=== PATIENT | male | born 1970 | race Caucasian/White ===

== ENCOUNTER 2019-06-21 14:52 | Emergency (ER) | payer BC, SELFPAY ==
[2019-06-21 15:36] LABS: Absolute Lymphocytes (CBC) 2.3 K/uL (0.7-4.9); Basophils % 0.7 % (0-1.3); Hematocrit 43.1 % (39.6-49.0); Lymphocytes % 20.9 % (15.3-44.8); MPV 7.4 fL (7.6-11.3); RBC Red Blood Cell Count 4.86 M/uL (4.33-5.43)
[2019-06-21] MEDS ORDERED: NA CHLORIDE 0.9% 1,000 ML ONE (16:36)
[2019-06-21 16:50] LABS: Urine Blood NEGATIVE (NEG); Urine Glucose NEGATIVE (NEG); Urine Protein NEGATIVE (NEG); Urine Specific Gravity 1.015 (1.005-1.030); Urine pH 5.5 (5.0-7.0)
--- NOTE | 2019-06-21 17:44 | RAD REPORT ---
EXAM DESCRIPTION: CT - Abdomen Pelvis W Contrast - 06/21/2019 5:02 pm CLINICAL HISTORY: ABD PAIN COMPARISON: None. TECHNIQUE: Biphasic, helical CT imaging of the abdomen and pelvis was performed following 100 ml non -ionic IV contrast. Oral contrast was given. All CT scans are performed using dose optimization technique as appropriate and may include automated exposure control or mA/KV adjustment according to patient size. FINDINGS: No suspicious findings in the lung bases. The liver, spleen, and pancreas show no suspicious findings. Gallbladder and biliary tree are also wi thout suspicious finding. Symmetric renal function is seen with no hydronephrosis or suspicious renal mass. No pyelonephritis o r acute parenchymal process. No bladder abnormalities. No adrenal abnormalities. No stomach or small bowel acute findings. No appendicitis. A 5 centimeter long segment of sigmoid col on shows circumferential wall thickening. This is in the setting of moderate diverticulosis. Strandin g is seen in the fat adjacent to the colon. No abscess, free air or other emergent complication. No hernia, mass or bulky lymphadenopathy. No suspicious bony findings. IMPRESSION: Mild sigmoid diverticulitis. No abscess, free air or complicating finding.
--- NOTE | 2019-06-21 17:48 | EDPHYS ---
Physician Documentation [facility] Name: Christopher Voss Age: 49 yrs Sex: Male : 1970 Arrival Date: 06/21/2019 Time: 14:58 Bed 26 Private MD: ED Physician Rubén Castanon HPI: 06/21 15:13 This 49 yrs old Male presents to ER via Ambulatory with complaints of kb Abdominal Pain. 15:13 The patient presents with abdominal pain in the left lower quadrant. Onset: The kb symptoms/episode began/occurred yesterday. The symptoms do not radiate. Associated signs and symptoms: none. The symptoms are described as crampy, intermittent. Modifying factors: The symptoms are alleviated by nothing, the symptoms are aggravated by nothing. Severity of pain: At its worst the pain was mild in the emergency department the pain is unchanged. The patient has not experienced similar symptoms in the past. The patient has not recently seen a physician. Pt reports LLQ pain that started yesterday and went away after a while. STates it has been coming on every hour or two today and lasting for a few seconds at a time. Denies n/v/d/f. Historical: - Allergies: 15:06 No Known Allergies; la1 - PMHx: 15:06 Anxiety; Hypertension; Myocardial infarction; la1 - Immunization history:: Adult Immunizations up to date. - Social history:: Smoking status: Patient/guardian denies using tobacco. - Ebola Screening: : No symptoms or risks identified at this time. ROS: 15:13 Constitutional: Negative for fever, chills, and weight loss, ENT: Negative for injury, kb pain, and discharge, Neck: Negative for injury, pain, and swelling, Cardiovascular: Negative for chest pain, palpitations, and edema, Respiratory: Negative for shortness of breath, cough, wheezing, and pleuritic chest pain, Back: Negative for injury and pain, : Negative for injury, bleeding, discharge, and swelling, MS/Extremity: Negative for injury and deformity, Skin: Negative for injury, rash, and discoloration, Neuro: Negative for headache, weakness, numbness, tingling, and seizure. 15:13 Abdomen/GI: Positive for abdominal pain, Negative for nausea, vomiting, and diarrhea, constipation, abdominal cramps, abdominal distension, anorexia. Exam: 15:13 Constitutional: This is a well developed, well nourished patient who is awake, alert, kb and in no acute distress. Head/Face: Normocephalic, atraumatic. ENT: Nares patent. No nasal discharge, no septal abnormalities noted. Tympanic membranes are normal and external auditory canals are clear. Oropharynx with no redness, swelling, or masses, exudates, or evidence of obstruction, uvula midline. Mucous membranes moist. Neck: Trachea midline, no thyromegaly or masses palpated, and no cervical lymphadenopathy. Supple, full range of motion without nuchal rigidity, or vertebral point tenderness. No Meningismus. Chest/axilla: Normal chest wall appearance and motion. Nontender with no deformity. No lesions are appreciated. Cardiovascular: Regular rate and rhythm with a normal S1 and S2. No gallops, murmurs, or rubs. Normal PMI, no JVD. No pulse deficits. Respiratory: Lungs have equal breath sounds bilaterally, clear to auscultation and percussion. No rales, rhonchi or wheezes noted. No increased work of breathing, no retractions or nasal flaring. Back: No spinal tenderness. No costovertebral tenderness. Full range of motion. Skin: Warm, dry with normal turgor. Normal color with no rashes, no lesions, and no evidence of cellulitis. MS/ Extremity: Pulses equal, no cyanosis. Neurovascular intact. Full, normal range of motion. Neuro: Awake and alert, GCS 15, oriented to person, place, time, and situation. Cranial nerves II-XII grossly intact. Motor strength 5/5 in all extremities. Sensory grossly intact. Cerebellar exam normal. Normal gait. 15:13 Abdomen/GI: Inspection: abdomen appears normal, Bowel sounds: normal, in all quadrants, Palpation: soft, in all quadrants, nontender, in the right upper quadrant, left upper quadrant and right lower quadrant, mild abdominal tenderness, in the left lower quadrant. Vital Signs: 15:06 BP 134 / 90; Pulse 78; Resp 16; Temp 98.5; Pulse Ox 100% on R/A; Weight 81.65 kg; la1 Height 5 ft. 6 in. (167.64 cm); 18:03 BP 127 / 90; Pulse 82; Resp 18; Pulse Ox 97% on R/A; aj1 15:06 Body Mass Index 29.05 (81.65 kg, 167.64 cm) la1 MDM: 15:07 Patient medically screened. kb 15:13 Data reviewed: vital signs, nurses notes. Data interpreted: Pulse oximetry: on room air kb is 100 %. Interpretation: normal. 16:07 Counseling: I had a detailed discussion with the patient and/or guardian regarding: the kb historical points, exam findings, and any diagnostic results supporting the discharge/admit diagnosis, lab results, the need for outpatient follow up, a family practitioner, to return to the emergency department if symptoms worsen or persist or if there are any questions or concerns that arise at home. ED course: WBC normal at this time. Pt educated to return for worsening or constant pain, fever, n/v/d with inability to tolerate PO intake or any other concerns. . 16:33 ED course: Pt now requests that I do a CT. States "I'm already here so I want to get it kb done now before it gets worse." . 06/21 15:10 Order name: Basic Metabolic Panel; Complete Time: 16:02 kb 06/21 15:10 Order name: CBC with Diff; Complete Time: 15:38 kb 06/21 16:34 Order name: Urine Dipstick--Ancillary (enter results); Complete Time: 17:00 bd 06/21 16:35 Order name: CT Abd/Pelvis - IV Contrast Only; Complete Time: 17:47 kb 06/21 15:10 Order name: IV Saline Lock; Complete Time: 15:28 kb 06/21 15:10 Order name: Labs collected and sent; Complete Time: 15:28 kb 06/21 16:04 Order name: Urine Dipstick-Ancillary (obtain specimen); Complete Time: 16:38 kb Administered Medications: 16:39 Drug: NS 0.9% 1000 ml Route: IV; Rate: 1000 ml; Site: right forearm; ca1 18:02 Drug: Cipro 500 mg Route: PO; aj1 18:03 Follow up: Response: No adverse reaction aj1 18:02 Drug: Flagyl 500 mg Route: PO; aj1 18:02 Follow up: Response: No adverse reaction aj1 Disposition: 06/22 05:52 Co-signature as Attending Physician, Rubén Castanon MD I agree with the assessment and kim plan of care. Disposition: 06/21/19 17:47 Discharged to Home. Impression: Diverticulitis of intestine, part unspecified, without perforation or abscess without bleeding. - Condition is Stable. - Discharge Instructions: Diverticulitis, [id number]. - Prescriptions for Flagyl 500 mg Oral Tablet - take 1 tablet by ORAL route every 8 hours for 7 days; 21 tablet. Zofran 4 mg Oral Tablet - take 1 tablet by ORAL route every 6 hours As needed; 20 tablet. Cipro 500 mg Oral Tablet - take 1 tablet by ORAL route every 12 hours for 7 days; 14 tablet. Diclofenac Sodium 75 mg Oral Tablet, Delayed Release (E.C.) - take 1 tablet by ORAL route 2 times per day As needed; 30 tablet. - Medication Reconciliation Form, Thank You Letter, Antibiotic Education, Prescription Opioid Use form. - Follow up: Emergency Department; When: As needed; Reason: Worsening of condition. Follow up: Private Physician; When: 2 - 3 days; Reason: Recheck today's complaints, Continuance of care, Re-evaluation by your physician. Signatures: Dispatcher [employer] EDMS Ny Hutchinson, QUALITY CONTROL TECH-C QUALITY CONTROL TECH-CkRossana Millan, RN RN aj1 Rubén Castanon MD MD cha Attema, Lee RN RN la1 Federica Shirley RN RN ca1 Corrections: (The following items were deleted from the chart) 06/21 16:09 16:07 ED course: Pt educated to return for worsening or constant pain, fever, n/v/d kb with inability to tolerate PO intake or any other concerns. . kb 17:48 17:47 06/21/2019 17:47 Discharged to Home. Impression: Lower abdominal pain, kb unspecified. Condition is Stable. Discharge Instructions: Abdominal Pain, Adult, [id number]. Prescriptions for Bentyl 20 mg Oral Tablet - take 1 tablet by ORAL route every 6 hours As needed; 20 tablet. and Forms are Medication Reconciliation Form, Thank You Letter, Antibiotic Education, Prescription Opioid Use. Follow up: Emergency Department; When: As needed; Reason: Worsening of condition. Follow up: Private Physician; When: 2 - 3 days; Reason: Recheck today's complaints, Continuance of care, Re-evaluation by your physician. kb 18:05 17:48 06/21/2019 17:47 Discharged to Home. Impression: Diverticulitis of intestine, aj1 part unspecified, without perforation or abscess without bleeding. Condition is Stable. Discharge Instructions: Abdominal Pain, Adult, [id number]. Prescriptions for Bentyl 20 mg Oral Tablet - take 1 tablet by ORAL route every 6 hours As needed; 20 tablet. and Forms are Medication Reconciliation Form, Thank You Letter, Antibiotic Education, Prescription Opioid Use. Follow up: Emergency Department; When: As needed; Reason: Worsening of condition. Follow up: Private Physician; When: 2 - 3 days; Reason: Recheck today's complaints, Continuance of care, Re-evaluation by your physician. kb
--- NOTE | 2019-06-21 17:48 | ER ---
Nurse's Notes [facility] Name: Christopher Voss Age: 49 yrs Sex: Male : 1970 Arrival Date: 06/21/2019 Time: 14:58 Bed 26 Private MD: Diagnosis: Diverticulitis of intestine, part unspecified, without perforation or abscess without bleeding Presentation: 06/21 15:05 Presenting complaint: Patient states: intermittent cramping pain in lower bad since la1 yesterday, denies N/V/D. Transition of care: patient was not received from another setting of care. Onset of symptoms was June 21, 2019. Risk Assessment: Do you want to hurt yourself or someone else? Patient reports no desire to harm self or others. Initial Sepsis Screen: Does the patient meet any 2 criteria? No. Patient's initial sepsis screen is negative. Does the patient have a suspected source of infection? No. Patient's initial sepsis screen is negative. Care prior to arrival: None. 15:05 Method Of Arrival: Ambulatory la1 15:05 Acuity: TOMMY 3 la1 Historical: - Allergies: 15:06 No Known Allergies; la1 - PMHx: 15:06 Anxiety; Hypertension; Myocardial infarction; la1 - Immunization history:: Adult Immunizations up to date. - Social history:: Smoking status: Patient/guardian denies using tobacco. - Ebola Screening: : No symptoms or risks identified at this time. Screenin:30 Abuse screen: Denies threats or abuse. Denies injuries from another. Nutritional aj1 screening: No deficits noted. Tuberculosis screening: No symptoms or risk factors identified. 18:04 Fall Risk None identified. aj1 Assessment: 15:30 General: Appears in no apparent distress. uncomfortable, Behavior is calm, cooperative, aj1 appropriate for age. Pain: Complains of pain in abdomen. Neuro: Level of Consciousness is awake, alert, obeys commands. Cardiovascular: Patient's skin is warm and dry. Respiratory: Airway is patent Respiratory effort is even, unlabored, Respiratory pattern is regular, symmetrical. GI: Abdomen is non-distended, Bowel sounds present X 4 quads. Abd is soft and non tender X 4 quads. Reports cramping. : No signs and/or symptoms were reported regarding the genitourinary system. EENT: No signs and/or symptoms were reported regarding the EENT system. Derm: No signs and/or symptoms reported regarding the dermatologic system. Skin is pink, warm \T\ dry. normal. Musculoskeletal: No signs and/or symptoms reported regarding the musculoskeletal system. Circulation, motion, and sensation intact. 16:29 Reassessment: Patient appears in no apparent distress at this time. No changes from aj1 previously documented assessment. Patient and/or family updated on plan of care and expected duration. Pain level reassessed. Patient is alert, oriented x 3, equal unlabored respirations, skin warm/dry/pink. 17:30 Reassessment: Patient appears in no apparent distress at this time. No changes from aj1 previously documented assessment. Patient and/or family updated on plan of care and expected duration. Pain level reassessed. Patient is alert, oriented x 3, equal unlabored respirations, skin warm/dry/pink. Vital Signs: 15:06 BP 134 / 90; Pulse 78; Resp 16; Temp 98.5; Pulse Ox 100% on R/A; Weight 81.65 kg; la1 Height 5 ft. 6 in. (167.64 cm); 18:03 BP 127 / 90; Pulse 82; Resp 18; Pulse Ox 97% on R/A; aj1 15:06 Body Mass Index 29.05 (81.65 kg, 167.64 cm) la1 ED Course: 14:58 Patient arrived in ED. mr 15:06 Triage completed. la1 15:06 [facility] Hutch[facility] kb 15:06 Rubén Castanon MD is Attending Physician. kb 15:06 Arm band placed on left wrist. la1 15:27 Bed in low position. Call light in reach. Verbal reassurance given. Pulse ox on. NIBP jp3 on. 15:27 Initial lab(s) drawn, by me, sent to lab. Inserted saline lock: 22 gauge in right jp3 forearm, using aseptic technique. Blood collected. Patient maintains SpO2 saturation greater than 95% on room air. 15:28 Basic Metabolic Panel Sent. jp3 15:28 CBC with Diff Sent. jp3 15:30 No provider procedures requiring assistance completed. aj1 15:44 Rossana Martino, RN is Primary Nurse. aj1 17:03 CT Abd/Pelvis - IV Contrast Only In Process Unspecified. EDMS 17:57 IV discontinued, intact, bleeding controlled, No redness/swelling at site. Pressure jp3 dressing applied. Administered Medications: 16:39 Drug: NS 0.9% 1000 ml Route: IV; Rate: 1000 ml; Site: right forearm; ca1 18:02 Drug: Cipro 500 mg Route: PO; aj1 18:03 Follow up: Response: No adverse reaction aj1 18:02 Drug: Flagyl 500 mg Route: PO; aj1 18:02 Follow up: Response: No adverse reaction aj1 Outcome: 17:47 Discharge ordered by . kb 18:04 Discharged to home ambulatory. aj1 18:04 Condition: good 18:04 Discharge instructions given to patient, Instructed on discharge instructions, follow up and referral plans. medication usage, Demonstrated understanding of instructions, follow-up care, medications, Prescriptions given X 4. 18:05 Patient left the ED. aj1 Signatures: Dispatcher [employer] EDMS Ny Hutchinson, APPLICATIONS PACKAGER-C APPLICATIONS PACKAGER-Rossana Mcnally RN RN aj1 Aarti Mane Lee, RN RN la1 Rajan Villanueva jp3 Federica Shirley RN RN ca1
[2019-06-21] MEDS ORDERED: metroNIDAZOLE 500 MG TABLET ONE (17:50)
[2019-06-21] MEDS ORDERED: CIPROFLOXACIN HCL 500 MG TAB ONE (17:51)
[2019-06-21 18:11] VITALS: TEMP 98.5
[2019-06-21 18:13] VITALS: BP 127/90; O2SAT 97
== END 2019-06-21 18:05 | disposition home or self-care (01) ==
LOC: ER 14:52
DX: K57.92 Diverticulitis of intestine, part unspecified, without perforation or abscess without bleeding (principal); I10 Essential (primary) hypertension
CPT/HCPCS: 85025; 80048; 36415; 81003; 74177; 99284; Q9967; J7030

== ENCOUNTER 2022-08-29 13:58 | Emergency (ER) | payer BC ==
--- OUTSIDE RECORDS SUMMARY | 2022-08-29 14:05 | XMS REPORT | Continuity of Care Document ---
:1970 Author Organization [facility] t Address [address] [place] [place] [address] Care Team Providers Name Role Phone Darrell Houston Primary Care Physician AARTI WASHINGTON Attending Clinician Unavailable AARTI WASHINGTON Attending Clinician Unavailable Rashad Taylor MD Attending Clinician Unknown, Attending Attending Clinician Unavailable RASHAD TAYLOR Attending Clinician Unavailable Doctor Unassigned, [place] Attending Clinician Unavailable Javier Martin Attending Clinician Unavailable AZAM GALEANO Attending Clinician Unavailable Azam Galeano MD Attending Clinician Alverto Peterson MD Attending Clinician 1, [facility] Attending Clinician Unavailable Javier Martin Admitting Clinician Unavailable AZAM GALEANO Admitting Clinician Unavailable Alverto Peterson MD Admitting Clinician Payers Payer Name Policy Type Policy Number Effective Date Expiration Date S [facility] [id number] PPO AND [id number] 2022 00:00:00 OUT OF STATE Problems Condition Condition Condition Status Onset Resolution Last Treating Co mments Source Name Details Category Date Date Treatment Clinician Date R00.2 R00.2 Diagnosis Active 2021-092022-08-26 Mem oria Active 09-23 08:54:00 l 07/24/2022 00:00: Mj barber [facility] 00 [place] Palpitatio Palpitatio Disease Active 2021-09 U T ns ns 09-14 Health 00:00: 00 CAD CAD Disease Active 2021-09 UT (coronary (coronary 09-14 Heal th artery artery 00:00: disease) disease) 00 PVC PVC Disease Active 2021-09 UT (premature (premature 09-14 He alth ventricula ventricula 00:00: r r 00 contractio contractio n) n) SVT SVT Disease Active 2021-09 UT (supravent (supravent 09-14 He alth ricular ricular 00:00: tachycardi tachycardi 00 a) a) No known No known Disease Unive rs active active ity of problems problems [facility] Allergies, Adverse Reactions, Alerts Allergy Allergy Status Severity Reaction(s) Onset Inactive Treating Comm ents Source Name Type Date Date Clinician No Known DA Active [facility] Allergie 05-22 [facility] 00:00: [address] NO KNOWN Drug Active [facility] ALLERGIE Class ity [facility] Social History Social Habit Start Date Stop Date Quantity Comments Source History of Current smoker [place] of tobacco use [facility] Exposure to 2022-08-18 2022-08-28 Not sure [facility] SARS-CoV-2 00:00:00 15:04:00 (event) Alcohol intake 2022-08-28 2022-08-28 Lifetime [facility] 00:00:00 00:00:00 non-drinker (finding) Tobacco use and 2022-07-16 2022-07-16 Smokeless tobacco [facility] exposure 00:00:00 00:00:00 non-user Tobacco Comment 2019-05-04 2019-05-04 quit 5 years ago Uni versity of 00:00:00 00:00:00 [facility] Sex Assigned At [birth year] [place] [facility] 00:00:00 00:00:00 Smoking Status Start Date Stop Date Source Unknown if ever smoked Universit y [facility] Never smoked tobacco [facility] Ex-smoker 2019-05-04 00:00:00 2019-05-04 00:00:00 [facility] Medications Ordered Filled Start Stop Current Ordering Indication Dosage Frequency Signature Comments Components Source Medication Medication Date Date Medication? Clinician (SIG) Name Name Metoprolol 2021-09 Yes 50mg Take 50 mg U T Succinate 2-15 by mouth. Healt h 50 MG 15:51: capsule 24 extended-re lease 24 hour sprinkle lisinopril 2021-09 Yes 10mg Take 10 mg U T 10 MG 2-15 by mouth. Health tablet 15:51: 24 fenofibrate 2021-09 Yes Take by UT (Triglide) 2-15 mouth. Health 160 MG 15:51: tablet 24 clopidogrel 2021-09 Yes 75mg Take 75 mg UT (Plavix) 75 2-15 by mouth. Hea lth MG tablet 15:51: 24 aspirin 81 2021-09 Yes 81mg Chew 81 UT MG chewable 2-15 mg. Health tablet 15:51: 24 ALPRAZolam 2021-09 Yes 2mg Take 2 mg UT (Xanax) 2 2-15 by mouth. Healt h MG tablet 15:51: 24 aspirin 81 2021-09 Yes 81mg Take 81 mg U nivers mg chewable 2-12 by mouth ity of tablet 14:04: daily. [address] clopidogreL 2021-09 Yes 75mg Take 75 mg Univers 75 mg 2-12 by mouth ity of tablet 14:04: daily. [address] metoprolol 2021-09 Yes 50mg Take 50 mg U nivers succinate 2-12 by mouth 2 ity of 50 mg CSpX 14:04: (two) [place] [id number] times Medical daily. Branch lisinopril 2021-09 Yes 10mg Take 10 mg U nivers 10 mg 2-12 by mouth 2 ity of tablet 14:04: (two) [place] [id number] times Medical daily. Branch Fenofibrate 2021-09 Yes Take by Uni vers 160 mg 2-12 mouth ity of tablet 14:04: daily. [address] ALPRAZolam 2021-09 Yes 2mg Take 2 mg Un kaz 2 mg tablet 2-12 by mouth ity of 14:04: at bedtime [place] [id number] as needed Medical for Sleep. Branch RANITIDINE 2021-09 Yes Take by [facility] ers HCL ORAL 2-12 mouth. ity of 14:04: [address] Branch clindamycin 2021-09- Yes [id number] 300mg Take 1 Univers 300 mg 2-12 12-20 capsule by ity of capsule 00:00: 05:59 mouth 4 [place] 00 :00 (four) Medical times [place] daily for 7 days. clindamycin 2021-09- Yes 300mg Take 300 UT (Cleocin) 2-12 12-20 mg by Health 300 MG 00:00: 05:59 mouth. capsule 00 :00 Metoprolol 2021-09 Yes 50mg Take 50 mg U T Succinate 1-02 by mouth. Healt h 50 MG 11:14: capsule 15 extended-re lease 24 hour sprinkle lisinopril 2021-09 Yes 10mg Take 10 mg U T 10 MG 02 by mouth. Health tablet 11:14: 15 fenofibrate 2021-09 Yes Take by UT (Triglide) 1-02 mouth. Health 160 MG 11:14: tablet 15 clopidogrel 2021-09 Yes 75mg Take 75 mg UT (Plavix) 75 1-02 by mouth. Hea lth MG tablet 11:14: 15 aspirin 81 2021-09 Yes 81mg Chew 81 UT MG chewable 1-02 mg. Health tablet 11:14: 15 ALPRAZolam 2021-09 Yes 2mg Take 2 mg UT (Xanax) 2 1-02 by mouth. Healt h MG tablet 11:14: 15 Metoprolol 2021-09 Yes 50mg Take 50 mg U T Succinate -02 by mouth. Healt h 50 MG 11:14: capsule 15 extended-re lease 24 hour sprinkle lisinopril 2021-09 Yes 10mg Take 10 mg U T 10 MG 1-02 by mouth. Health tablet 11:14: 15 fenofibrate 2021-09 Yes Take by UT (Triglide) 1-02 mouth. Health 160 MG 11:14: tablet 15 clopidogrel 2021-09 Yes 75mg Take 75 mg UT (Plavix) 75 1-02 by mouth. Hea lth MG tablet 11:14: 15 aspirin 81 2021-09 Yes 81mg Chew 81 UT MG chewable 1-02 mg. Health tablet 11:14: 15 ALPRAZolam 2021-09 Yes 2mg Take 2 mg UT (Xanax) 2 1-02 by mouth. Healt h MG tablet 11:14: 15 pantoprazol 2021-09 Yes UT e 0-07 Health (ProtoNix) 00:00: 40 MG EC 00 tablet pantoprazol 2021-09 Yes UT e 0-07 Health (ProtoNix) 00:00: 40 MG EC 00 tablet pantoprazol 2021-09 Yes UT e 0-07 Health (ProtoNix) 00:00: 40 MG EC 00 tablet aspirin 81 Yes 81mg Take 81 mg U nivers mg chewable 8-22 by mouth ity of tablet 16:13: daily. [address] Branch clopidogrel Yes 75mg Take 75 mg Univers (PLAVIX) 75 8-22 by mouth ity of mg tablet 16:13: daily. [address] Branch metoprolol Yes 50mg Take 50 mg U nivers succinate 8-22 by mouth 2 ity of 50 mg CSpX 16:13: (two) [place] [address] times Medical daily. Branch lisinopril Yes 10mg Take 10 mg U nivers 10 mg 8-22 by mouth 2 ity of tablet 16:13: (two) [place] [address] times Medical daily. Branch Fenofibrate Yes Take by Uni vers 160 mg 8-22 mouth ity of tablet 16:13: daily. [address] Branch ALPRAZolam Yes 2mg Take 2 mg Un kaz 2 mg tablet 8-22 by mouth ity of 16:13: at bedtime [place] [address] as needed Medical for Sleep. Branch RANITIDINE Yes Take by Univ ers HCL ORAL 8-22 mouth. ity of 16:13: [address] Branch aspirin 81 Yes 81mg Take 81 mg U nivers mg chewable 8-22 by mouth ity of tablet 16:13: daily. [address] Branch clopidogrel Yes 75mg Take 75 mg Univers (PLAVIX) 75 8-22 by mouth ity of mg tablet 16:13: daily. [place] [address] Medical Branch metoprolol Yes 50mg Take 50 mg U nivers succinate 8-22 by mouth 2 ity of 50 mg CSpX 16:13: (two) [place] [address] times Medical daily. Branch lisinopril Yes 10mg Take 10 mg U nivers 10 mg 05-05 by mouth 2 ity of tablet 16:13: (two) [place] [address] times Medical daily. Branch Fenofibrate Yes Take by Uni vers 160 mg 05-05 mouth ity of tablet 16:13: daily. [address] ALPRAZolam 2019 Yes 2mg Take 2 mg Un kaz 2 mg tablet 05-05 by mouth ity of 16:13: at bedtime [place] [address] as needed Medical for Sleep. Branch RANITIDINE Yes Take by [facility] ers HCL ORAL 05-05 mouth. ity of 16:13: [address] tetracaine 0 Yes PRN, Univers (PONTOCAINE 05-05 Starting ity of ) 0.5 % 12:49: [place] ophthalmic 05/05/19 at [facility] ical drops [id number] Until Discontinu ed, Routine, Intra-op water for 0 Yes PRN, Univers irrigation 05-05 Starting ity o f irrigation 12:49: [place] solution 05/05/19 at Medic al [facility] Until Discontinu ed, Routine, Intra-op sodium 2018-0 Yes PRN, Univers chloride 05-05 Starting ity of (NS) 12:49: [place] injection 05/05/19 at Medi lesa [facility] Until Discontinu ed, Routine, Intra-op neomycin-po 0 Yes PRN, Univer s lymyxin-dex 05-05 Starting ity of amethasone 12:49: [place] (MAXITROL) 05/05/19 at [facility] ical 3.5 [facility] mg/g-10,000 Until unit/g-0.1 Discontinu % ed, ophthalmic Routine, ointment Intra-op gentamicin 2018-0 Yes PRN, Univers injection 05-05 Starting ity of 12:48: [place]ail [place] 05/05/19 at Medical [facility] Until Discontinu ed, TIMUR, Intra-op EPINEPHrine 2018-0 Yes PRN, Univer s (PF) 05-05 Starting ity of 1:1,000 (1 12:48: [place] mg/mL) 05/05/19 at [facility] (ADRENALIN [facility] (PF)) Until injection Discontinu ed, Routine, Intra-op DUOVISC 2018-0 Yes PRN, Univers (DUOVISC 05-05 Starting ity of VISCO 12:48: [place] ELASTIC) 3 00 05/05/19 at [facility] %-4 %(0.5 0748, Branch mL) 1 % Until (0.55 mL) Discontinu intraocular ed, injection Routine, Intra-op dexamethaso 0 Yes PRN, Univer s ne 05-05 Starting ity of (DECADRON 12:48: [place] PHOSPHATE) 05/05/19 at [facility] injection 0748, [place] Until Discontinu ed, Routine, Intra-op ceFAZolin Yes PRN, Univers (ANCEF) 05-05 Starting ity of injection 12:47: [place] 05/05/19 at [place] [id number], [place] Until Discontinu ed, TIMUR, Intra-op bupivacaine Yes PRN, [facility] s (preserv 05-05 Starting ity of free) 12:45: [place] (SENSORCAIN 00 05/05/19 at [place] dicms E MP) 0.75 45, Branch % (7.5 Until mg/mL) Discontinu injection ed, Routine, Intra-op balanced 0 Yes PRN, Univers salt irrig 05-05 Starting ity o f soln comb1 12:45: [place] (BSS PLUS) 00 05/05/19 at [facility] ophthalmic 0745, [place] solution Until 500 mL bag Discontinu ed, Routine, Intra-op lactated 0 Yes 500mL at 42 [facility] ringers IV 8-22 mL/hr, 500 ity of infusion 12:30: mL, IV [place] 500 mL 00 Infusion, Medical CONTINUOUS [place] , Starting Gail 05/05/19 at 0730, Until Discontinu ed, Routine, DSU Pre-op mydriatic 2019 2019- No .5mL 0.5 mL, Univ ers #5 05-05 Right Eye, ity of ophthalmic 12:30: 12:49 ONCE, 1 [place] as solution 00 :00 dose, [place]ail Medica l 0.5 mL 05/05/19 at [place] syringe 0730, Routine, DSU Pre-op aspirin 81 2018- Yes 81mg Take 81 mg U nivers mg chewable 05-05 by mouth ity of tablet 11:13: daily. [address] clopidogrel 2019-0 Yes 75mg Take 75 mg Univers (PLAVIX) 75 8-22 by mouth ity of mg tablet 11:13: daily. [address] Branch metoprolol 2018-0 Yes 50mg Take 50 mg U nivers succinate 8-22 by mouth 2 ity of 50 mg CSpX 11:13: (two) [place] [address] times Medical daily. Branch lisinopril 0 Yes 10mg Take 10 mg U nivers 10 mg 8-22 by mouth 2 ity of tablet 11:13: (two) [place] [address] times Medical daily. Branch Fenofibrate 0 Yes Take by Uni vers 160 mg 8-22 mouth ity of tablet 11:13: daily. [address] ALPRAZolam 0 Yes 2mg Take 2 mg Un kaz 2 mg tablet 8-22 by mouth ity of 11:13: at bedtime [place] [address] as needed Medical for Sleep. Branch RANITIDINE Yes Take by Univ ers HCL ORAL 8-22 mouth. ity of 11:13: [address] aspirin 81 0 Yes 81mg Take 81 mg U nivers mg chewable 8-22 by mouth ity of tablet 11:13: daily. [address] clopidogrel 0 Yes 75mg Take 75 mg Univers (PLAVIX) 75 8-22 by mouth ity of mg tablet 11:13: daily. [address] metoprolol 0 Yes 50mg Take 50 mg U nivers succinate 8-22 by mouth 2 ity of 50 mg CSpX 11:13: (two) [place] [address] times Medical daily. Branch lisinopril 20190 Yes 10mg Take 10 mg U nivers 10 mg 8-22 by mouth 2 ity of tablet 11:13: (two) [place] [address] times Medical daily. Branch Fenofibrate 0 Yes Take by Uni vers 160 mg 8-22 mouth ity of tablet 11:13: daily. [address] ALPRAZolam 2018-0 Yes 2mg Take 2 mg Un kaz 2 mg tablet 8-22 by mouth ity of 11:13: at bedtime [place] [address] as needed Medical for Sleep. Branch RANITIDINE 0 Yes Take by Univ ers HCL ORAL 8-22 mouth. ity of 11:13: [address] aspirin 81 2017-0 Yes 81mg Take 81 mg U nivers mg chewable 2-19 by mouth ity of tablet 18:24: daily. [place] 09 Medical Branch ofloxacin Yes 2[drp] Place 2 Uni vers 0.3 % 2-19 Drops in ity of ophthalmic 00:00: left eye [place] solution 00 every 4 Medical (four) Branch hours. traMADOL 50 Yes 50mg Take 1 Univ ers mg tablet 2-19 tablet by ity o f 00:00: mouth [place] 00 every 6 Medical (six) Branch hours as needed (eye pain). erythromyci 2017-0 Yes .5[in_u Place 0.5 Univers n 5 mg/gram 2-19 s] Inches in ity of (0.5 %) 00:00: left eye 3 [place] ophthalmic 00 (three) Medica l ointment times Branch daily. Continue until you follow up with eye doctor. ofloxacin Yes 2[drp] Place 2 Uni vers 0.3 % 2-19 Drops in ity of ophthalmic 00:00: left eye [place] solution 00 every 4 Medical (four) Branch hours. traMADOL 50 Yes 50mg Take 1 Univ ers mg tablet 2-19 tablet by ity o f 00:00: mouth [place] 00 every 6 Medical (six) Branch hours as needed (eye pain). erythromyci 2016-0 Yes .5[in_u Place 0.5 Univers n 5 mg/gram 2-19 s] Inches in ity of (0.5 %) 00:00: left eye 3 [place] ophthalmic 00 (three) Medica l ointment times Branch daily. Continue until you follow up with eye doctor. ofloxacin Yes 2[drp] Place 2 Uni vers 0.3 % 2-19 Drops in ity of ophthalmic 00:00: left eye [place] solution 00 every 4 Medical (four) Branch hours. traMADOL 50 0 Yes 50mg Take 1 Univ ers mg tablet 2-19 tablet by ity o f 00:00: mouth [place] 00 every 6 Medical (six) Branch hours as needed (eye pain). erythromyci 2017-0 Yes .5[in_u Place 0.5 Univers n 5 mg/gram 2-19 s] Inches in ity of (0.5 %) 00:00: left eye 3 [place] ophthalmic 00 (three) Medica l ointment times Branch daily. Continue until you follow up with eye doctor. ofloxacin Yes 2[drp] Place 2 Uni vers 0.3 % 2-19 Drops in ity of ophthalmic 00:00: left eye [place] solution 00 every 4 Medical (four) Branch hours. ofloxacin 2016- Yes 2[drp] Place 2 Uni vers 0.3 % 2-19 Drops in ity of ophthalmic 00:00: left eye [place] solution 00 every 4 Medical (four) Branch hours. traMADOL 50 2016-0 Yes 50mg Take 1 Univ ers mg tablet 2-19 tablet by ity o f 00:00: mouth [place] 00 every 6 Medical (six) Branch hours as needed (eye pain). traMADOL 50 2016-0 Yes 50mg Take 1 Univ ers mg tablet 2-19 tablet by ity o f 00:00: mouth [place] 00 every 6 Medical (six) Branch hours as needed (eye pain). erythromyci 2017-0 Yes .5[in_u Place 0.5 Univers n 5 mg/gram 2-19 s] Inches in ity of (0.5 %) 00:00: left eye 3 [place] ophthalmic 00 (three) Medica l ointment times Branch daily. Continue until you follow up with eye doctor. erythromyci 2016-0 Yes .5[in_u Place 0.5 Univers n 5 mg/gram 2-19 s] Inches in ity of (0.5 %) 00:00: left eye 3 [place] ophthalmic 00 (three) Medica l ointment times Branch daily. Continue until you follow up with eye doctor. ofloxacin 0 Yes 2[drp] Place 2 Uni vers 0.3 % 2-19 Drops in ity of ophthalmic 00:00: left eye [place] solution 00 every 4 Medical (four) Branch hours. traMADOL 50 2016-0 Yes 50mg Take 1 Univ ers mg tablet 2-19 tablet by ity o f 00:00: mouth [place] 00 every 6 Medical (six) Branch hours as needed (eye pain). erythromyci 2017-0 Yes .5[in_u Place 0.5 Univers n 5 mg/gram 2-19 s] Inches in ity of (0.5 %) 00:00: left eye 3 [place] ophthalmic 00 (three) Medica l ointment times Branch daily. Continue until you follow up with eye doctor. Immunizations Ordered Filled Immunization Date Status Comments Sour e Immunization Name Name Td 2016-11-02 Completed University of 00:00:00 [facility] Td 2016-11-02 Completed University of 00:00:00 [facility] Td 2016-11-02 Completed University of 00:00:00 [facility] Td 2016-11-02 Completed University of 00:00:00 [facility] Td 2016-11-02 Completed University of 00:00:00 [facility] Td 2016-11-02 Completed University of 00:00:00 [facility] Vital Signs Vital Name Observation Time Observation Value Comments Source Systolic blood 2022-08-28 21:48:00 137 mm[Hg] [facility] pressure Diastolic blood 2022-08-28 21:48:00 80 mm[Hg] [facility] pressure Heart rate 2022-08-28 21:48:00 105 /min [facility] Body height 2022-08-28 21:48:00 167.6 cm [facility] Body weight 2022-08-28 21:48:00 74.844 kg [facility] BMI 2022-08-28 21:48:00 26.63 kg/m2 [facility] 2022-08-25 20:05:00 133 mm[Hg] Univer sity [facility] Diastolic blood 2022-08-25 20:05:00 85 mm[facility]Hg[facility] 2022-08-25 20:05:00 88 /min [facility] Body temperature 2022-08-25 20:05:00 36.72 Sneha [facility] Res[facility] rate 2022-08-25 20:05:00 18 /min [facility] Body height 2022-08-25 20:05:00 167.6 cm [facility] Body weight 2022-08-25 20:05:00 74.844 kg [facility] BMI 2022-08-25 20:05:00 26.63 kg/m2 [facility] Oxygen saturation in 2022-08-25 20:05:00 99 /min University of Arterial blood by [facility] Pulse oximetry Branch Systolic blood 2022-07-16 16:14:00 165 mm[Hg] [facility] pressure Diastolic blood 2022-07-16 16:14:00 76 mm[Hg] UT He alth pressure Heart rate 2022-07-16 16:14:00 74 /min [facility] Body height 2022-07-16 16:14:00 167.6 cm [facility] Body weight 2022-07-16 16:14:00 72.576 kg [facility] BMI 2022-07-16 16:14:00 25.82 kg/m2 [facility] Systolic blood 2022-05-22 21:00:00 107 mm[Hg] Univer sity of pressure [place] [facility] Diastolic blood 2022-05-22 21:00:00 85 mm[Hg] Unive rsity of pressure [place] [facility] Heart rate 2022-05-22 21:00:00 71 /min [facility]i [facility] [place] [facility] Respiratory rate 2022-05-22 21:00:00 17 /min Univ ers[facility] [place] [facility] Oxygen saturation in 2022-05-22 21:00:00 95 /min University of Arterial blood by [facility] Pulse oximetry Branch Body temperature 2022-05-22 18:01:00 36.89 Sneha Univ ers[facility] [place] [facility] Body height 2022-05-22 18:01:00 167.6 cm [facility] [place] [facility] Body weight 2022-05-22 18:01:00 74.844 kg [facility] [place] [facility] BMI 2022-05-22 18:01:00 26.63 kg/m2 [facility] [place] [facility] Systolic blood 2019-05-05 14:24:00 119 mm[Hg] Univer sity of pressure [place] [facility] Diastolic blood 2019-05-05 14:24:00 81 mm[Hg] Unive rsity of pressure [place] [facility] Heart rate 2019-05-05 14:24:00 65 /min [facility] [place] [facility] Respiratory rate 2019-05-05 14:24:00 16 /min Univ ers[facility] [place] [facility] Oxygen saturation in 2019-05-05 14:24:00 98 /min University of Arterial blood by [facility] Pulse oximetry Branch Body temperature 2019-05-05 12:24:00 37.11 Sneha [facility] Body height 2019-05-04 16:00:00 170.2 cm [facility] Body weight 2019-05-04 16:00:00 83.915 kg [facility] BMI 2019-05-04 16:00:00 28.98 kg/m2 [facility] Procedures Procedure Date / Time Performing Clinician Source Performed ECG 12-LEAD 2022-08-28 21:46:00 ImanJudson [facility] ASSIGNMENT OF BENEFITS 2022-08-25 20:00:54 Doctor Unassigned, No [facility] Name [facility] ECG 12-LEAD 2022-07-16 16:17:00 ImanJudson [facility] XR CHEST 1 VW 2022-05-22 18:50:22 Azam Galeano [facility] COVID-19 (ID NOW RAPID 2022-05-22 18:17:00 Azam Galeano [facility] TESTING) Medical Branch LIPASE 2022-05-22 18:14:00 Azam Galeano [facility] MAGNESIUM 2022-05-22 18:14:00 Azam Galeano [facility] TROPONIN I 2022-05-22 18:14:00 Azam Galeano [facility] FREE T4 2022-05-22 18:14:00 Froylan Azam [facility] THYROID STIMULATING 2022-05-22 18:14:00 Azam Galeano [facility] HORMONE [facility] COMP. METABOLIC PANEL 2022-05-22 18:14:00 Azam Galeano [facility] ([id number]) [facility] CBC WITH DIFF 2022-05-22 18:14:00 Azam Galeano [facility] PROTHROMBIN TIME / INR 2022-05-22 18:14:00 Azam Galeano [facility] ACTIVATED PARTIAL 2022-05-22 18:14:00 Azam Galeano [facility] THRMPLAS MUMTAZ [facility] N-TERMINAL PRO-BNP 2022-05-22 18:14:00 Azam Galeano [facility] CONSENT/REFUSAL FOR 2022-05-22 17:57:37 Doctor Unassigned, No [facility] DIAGNOSIS AND TREATMENT Name Medical [place] DAY SURGERY - ADC 2019-05-05 05:01:00 Doctor Unassigned, No Univ ersity [facility] Medical [place] CBC WITH DIFFERENTIAL 2019-04-26 21:55:00 Alverto Peterson [facility] NOTICE OF PRIVACY 2019-04-26 21:35:29 Doctor Unassigned, No Univ [facility] [place] PRACTICES Name Medical Branch CONSENT/REFUSAL FOR 2019-04-26 21:32:48 Doctor Unassigned, No [facility] [place] DIAGNOSIS AND TREATMENT Name Medical Branch CONSENT/REFUSAL FOR 2019-04-26 21:32:34 Doctor Unassigned, No [facility] [place] DIAGNOSIS AND TREATMENT Name Medical Branch ASSIGNMENT OF BENEFITS 2019-04-26 21:32:17 Doctor Unassigned, No [facility] ASSIGNMENT OF BENEFITS 2019-04-26 21:31:58 Doctor Unassigned, No [facility] PHYSICIAN ORDERS 2019-04-26 05:01:00 Doctor Unassigned, No Unive rsity [facility] Encounters Start End Encounter Admission Attending Care Care Encounter Source Date/Time Date/Time Type Type Clinicians Facility Department ID 2022-08-29 Outpatient [id number] Memoria 14:03:08 [id number] [place] [id number] 2022-08-26 Outpatient [facility] [id number] [place] 09:10:20 [id number] [facility] 2022-08-26 Outpatient RADHA-JUDSON, NELSONSE CAR [id number] MH 08:54:01 AARTI [facility] 2022-08-15 Outpatient [facility] [id number] [place] 10:25:04 [id number] [facility] 2022-07-24 Outpatient [facility] [id number] [place] 16:11:10 [id number] [facility] 2022-07-16 Outpatient [facility] [id number] [place] 10:09:15 [id number] [facility] 2022-07-15 Outpatient [facility] [id number] [place] 10:05:51 [id number] [facility] 2022-07-01 Outpatient [facility] [id number] [place] 09:58:45 [id number] [facility] 2022-09-03 2022-09-03 Outpatient FELIX, [facility] [id number] [place] 09:45:00 09:45:00 [facility] 2022-08-29 2022-08-29 Outpatient FELIX, [facility] [id number] [place] 12:00:00 12:00:00 [facility] 2022-08-28 2022-08-28 Office VANESSA [place] [id number] [place] 15:30:00 17:22:13 Visit Aarti TALAVERA [id number] He frances [facility] [id number] 2022-08-25 2022-08-25 Urgent Rashad Taylor [facility] [id number] [facility] 14:00:00 14:20:00 Care Unknown, Attending [facility] 350.1.13.10 ity [facility] 4.2.7.2.686 Pepe as MINA?BLEA [phone] [address] MEDICAL OFFICE [facility] 2022-08-25 2022-08-25 Outpatient Axel [facility]OR [facility] [id number] Univers 14:00:00 14:00:00 [facility] 2022-08-25 Orders Doctor VAMSI [id number] [id number] Univers 00:00:00 00:00:00 Only Unassigned, HANY 350.1.13.10 [facility] 4.2.7.2.686 [place] as [phone] [address] 2022-07-16 2022-07-16 Office Felix [facility] [id number] [place] 10:30:00 11:53:50 Visit Aarti BAXTER 350.1.13.58 Joaquim daniels [place] [address] [phone] 2 2022-05-22 2022-05-23 Inpatient JAREK Jones [facility]. [id number] [facility] 19:06:00 14:48:[address] [facility] 2022-05-22 2022-05-22 Emergency X FROYLAN, [facility] ERT [id number] Univers 13:04:00 16:38:00 AZAM ity of [facility] 2022-05-22 2022-05-22 Emergency [facility] [id number] Univers 13:04:00 16:38:00 Azam MARCANO 350.1.13.10 i ty of [place] 4.2.7.2.686 [facility] [phone] [facility] [address] 2019-05-05 2019-05-05 Hospital [facility] 1.2.840.114 [id number] Univers 07:14:00 09:48:00 Encounter Alverto Marcano 350.1.13.10 ity of [place] 4.2.7.2.686 [facility] Surgical [phone] [facility] 0[address] 2019-05-05 2019-05-05 Orders Doctor VAMSI 1.2.840.114 [id number] Univers 00:00:00 00:00:00 Only Unassigned, HANY 350.1.13.10 ity [place] [facility] 4.2.7.2.686 [place] [phone] [facility] 009 Branch 2019-04-26 2019-04-26 Strapper 1, Adc Lab [facility] 1.2.840.114 [id number] Univers 16:32:01 16:47:01 Visit Alverto Peterson 350.1.1 3.10 ity of [place] 4.2.7.2.686 [facility] [phone] [facility] 353 Branch Results Test Description Test Time Test Comments Results Result Comments Source ECG 12 lead 2022-08-28 21:46:00 Test Item Value Reference Range Interpretation Comme nts Lab Interpretation (test code = 33944-2) Normal [place] [facility] 12 [id number] 16:17:00 Test Item Value Reference Range Interpretation Comments Lab Interpretation (test code = Normal 57053-6) [place] HealthCOMPREHENSIVE METABOLIC [id number] 06:43:00 Test Item Value Reference Range Interpretation Comments SODIUM (test code 136 MMOL/L 137-145 L = NA) POTASSIUM (test 3.7 MMOL/L 3.5-5.1 N code = K) CHLORIDE (test 105 MMOL/L 98-107 N code = CL) CARBON DIOXIDE 24 MMOL/L 22-30 N (test code = CO2) GLUCOSE (test 103 MG/DL 74-106 N code = GLU) BLOOD UREA 19 MG/DL 9-20 N NITROGEN (test code = BUN) GLOMERULAR > 60 Reporting units : FILTRATION RATE ml/min/1.73 m2 (Modified (test code = GFR) MDRD Formu la)Reference Range: > or = 6 0 ml/min/1.73 m2 CREATININE (test 1.00 MG/DL 0.66-1.25 N code = CREAT) TOTAL PROTEIN 6.8 G/DL 6.2-7.6 N [facility] Clinical Diagnostic (test code = has made us ned re of PROT) newinformation regarding the potential i nterference ofEltrombopag ( a bone marrow stimulan t used to treatthrombocyt onmenia and aplastic anemia ) with specific assays on the Vitros 5600 of which Total Protein is one of thoseassays per formed in our lab.Interfe rence testing perform ed at Ortho determined that Eltrombopag does interfere with Vitros Total Protein asfollowsEltrom bopag Interference fo r Vitros Product Total Protein:======= Eltrombopag Max Observed Av g. BiasConcentrati on Concentration Concentration== ==== 2.5 mg/dl 6.0 g/dl +0.41 +0.34 3.5 mg/dl 6.0 g /dl +0.50 +0.45 5 mg/dl 6 .0 g/dl +0.73 +0.65 2.5 mg/dl 8.0 g/dl +0.44 +0. 41 3.5 mg/dl 8.0 g/dl +0.55 +0.52 5 mg/dl 8.0 g/dl +0.86 +0.77 ALBUMIN (test 4.0 G/DL 3.5-5.0 N code = ALB) CALCIUM (test 9.4 MG/DL 8.4-10.2 N code = CA) BILIRUBIN TOTAL 0.6 MG/DL 0.2-1.3 N Eltrombopag Interference (test code = for Vitros Prod uct TBil, BILT) BuBc: Assa y Eltrombopag Gretchen lyte/ Max Observed Avg. B ias Concentration C oncentration Concentration== ====TBil 7mg/dl TBil/ 1 .2mg/dl +0.23mg.dl +0.2 0mg/dlBuBc 3.5mg/dl Bu/0.8 mg/dl +0.25mg/dl +0.2 4mg/dlBuBc 7 mg/dl Bu/14.2mg /dl +0.38mg/dl +0.2 5mg/dlBuBc 5mg/dl Bc/0mg/d l +0.25mg/dl +0.1 5mg/dlBuBc 3.5mg/dl Bc/2.8 mg/dl +0.25mg/dl +0.2 3mg/dl SGOT/AST (test 26 UNITS/L 17-59 N code = AST) SGPT/ALT (test 22 UNITS/L 0-49 N code = ALT) ALKALINE 45 UNITS/L 38-126 N PHOSPHATASE (test code = ALKP) LIPID PROFILE (CORONARY RISK)2022-05-23 06:43:00 Test Item Value Reference Range Interpretation Comments TRIGLYCERIDES (test 75 MG/DL 150-199 L TRIGLYCE RIDES code = TRIG) REFERENCE RANGE:Normal: < 150 mg/dLBorderline High: 150-199 mg/dLHi gh: 200-499 mg/dLVe ry High: >=500 mg/ dL CHOLESTEROL (test code 183 MG/DL <200 = CHOL) HDL CHOLESTEROL (test 49 MG/DL 40-59 N code = HDL) LIPOPROTEIN LDL (test 102 MG/DL 0-99 H OPTIM AL.........<100 code = LDL) mg/dLNEAR OPTIMAL/ABOVE OPTIMAL........ .100-12 9 mg/dL BORDERL INE HIGH.........13 0-159 mg/dL HIGH.........16 0-189 mg/dL VERY HIGH.........>/ = 190 mg/dL CBC W/AUTO [id number] 06:13:00 Test Item Value Reference Range Interpretation Comments WHITE BLOOD CELL (test code = 5.0 K/MM3 3.8-9.8 N WBC) RED BLOOD CELL (test code = 4.28 M/MM3 3.95-5.67 N RBC) HEMOGLOBIN (test code = HGB) 13.0 G/DL 12.4-16.7 N HEMATOCRIT (test code = HCT) 37.9 % 35.9-49.5 N MEAN CELL VOLUME (test code = 89 fL 81.7-96.1 N MCV) MEAN CELL HGB (test code = MCH) 30.4 pg 27.6-33.2 N MEAN CELL HGB CONCETRATION 34.3 % 32.9-35.5 N (test code = MCHC) RED CELL DISTRIBUTION WIDTH 13.0 % 12.1-15.2 N (test code = RDW) PLATELET COUNT (test code = 284 K/MM3 129-368 N PLT) MEAN PLATELET VOLUME (test code 9.0 fl 7.4-10.4 N = MPV) NEUTROPHIL % (test code = NT%) 42.8 % 43-75 L IMMATURE GRANULOCYTE % (test 0.2 % 0.0-2.0 N code = IG%) LYMPHOCYTE % (test code = LY%) 42.9 % 14-44 N MONOCYTE % (test code = MO%) 10.5 % 4-13 N EOSINOPHIL % (test code = EO%) 2.6 % 0-6 N BASOPHIL % (test code = BA%) 1.0 % 0-2 N NUCLEATED RBC % (test code = 0.0 % 0-1.0 N NRBC%) NEUTROPHIL # (test code = NT#) 2.16 K/mm3 2.0-7.6 N IMMATURE GRANULOCYTE # (test 0.01 x10 3/uL 0-0.03 N code = IG#) LYMPHOCYTE # (test code = LY#) 2.16 K/mm3 1.0-3.8 N MONOCYTE # (test code = MO#) 0.53 K/mm3 0.1-0.8 N EOSINOPHIL # (test code = EO#) 0.13 K/mm3 0.0-0.2 N BASOPHIL # (test code = BA#) 0.05 K/mm3 0.0-0.2 N NUCLEATED RBC # (test code = 0.00 K/mm3 0.0-0.1 N NRBC#) [id number] 01:32:00 Test Item Value Reference Range Interpretation Comments TROPONIN-I (test code = TROPI) < 0.012 NG/ML 0.012-0.033 L [id number] 22:23:00 Test Item Value Reference Range Interpretation Comments TROPONIN-I (test code = TROPI) < 0.012 NG/ML 0.012-0.033 L - XR CHEST [id number] 21:51:00 [facility] 1970 Sex: M Patient Name: BALDEV REDMAN Unit No: [id number] EXAMS: CPT CODE: [id number] XR CHEST 1V 07682 EXAM: CHEST ONE VIEW INDICATION: Chest fluttering LOCATION: B2 COMPARISON: None available TECHNIQUE: AP view of the chest FINDINGS: The heart size is normal. The lungs are clear bilaterally. The pulmonary vasculature isnormal. No pneumothorax or pleural effusion is identified. The osseous structures are normal. IMPRESSION: No acute cardiopulmonary process. [id number] Reported and signed by: Brooke Bragg MD CC: Wilda Nye MD Technologist: Britni Owen RTR Transcrpt Date/Tm/Trnsp: 05/22/2022 (2150) 16 Orig Print D/T: S: 05/22/2022 (2153) [facility] NAME: BALDEV REDMAN [address] PHYS: Wilda Estrada MD [address] [place] [address] : 1970 AGE: 51 SEX: M LOC: Z.433 A PHONE #: [phone] EXAM DATE: 05/22/2022 STATUS: ADM IN FAX #: [phone] RADIOLOGY NO: PAGE 1 Signed ReportACTIVATED PARTIAL THRMPLAS MUMTAZ 2022-05-22 19:29:09 Test Item Value Reference Range Interpretation Comments APTT Patient (test See_Comment [Automat ed code = 3173-2) message] The system which generated this result transmitted reference range : 23 - 38 Seconds . The reference range was not used to interpr et this result as normal/abnormal . OMAIRA (test code = OMAIRA) The [facility] patient population mean normal value for aPTT is 30 seconds. Lab Interpretation Normal (test code = 38059-1) [facility] / [id number] 19:28:54 Test Item Value Reference Range Interpretation Comments PROTIME PATIENT (test See_Comment [Auto mated message] code = 5964-2) The system wh ich generated this result transmitted ref erence range: 12.0 - 1 4.7 Seconds. The re ference range was not u sed to interpret this result as normal/abnor mal. INR (test code = 6301-6) Nor mal INR <1.1; Warfarin Therap eutic range 2.0 to 3. 0 or 2.5 to 3.5, dep ending upon the indica tions. Lab Interpretation (test Normal code = 56537-8) [facility] [id number] 19:25:09 Test Item Value Reference Range Interpretation Comments TSH (test code = See_Comment [Automated message] [id number]) The system [employer] generated this result transmitted ref erence range: 0.45 - 4 .70 mIU/L. The refe rence range was not u sed to interpret this result as normal/abnor mal. Lab Interpretation (test Normal code = 42457-0) [facility] [id number] 19:12:08 Test Item Value Reference Range Interpretation Comments FREE T4 (test code = See_Comment [Autom ated message] 8728377251) The system [employer] generated this result transmitted ref erence range: 0.78 - 2 .20 ng/dL:. The ref erence range was not u sed to interpret this result as normal/abnor mal. Lab Interpretation (test Normal code = 19116-6) [facility] [id number] 19:06:46 Test Item Value Reference Interpretation Comments Range TROPONIN I (test 0.007 ng/mL See_Comment [Automated code = 1181944806) message] The system which generated this result transmitted reference range : <=0.034. The reference range was not used to interpret this result as normal/abnormal . OMAIRA (test code = Reference (Normal) OMAIRA) Range (defined by the 99th percentile reference limit): <= 0.034 ng/mL Note: Cardiac troponin begins to rise 3-4 hours after the onset of ischemia. Repeat in 4-6 hours if the sample was drawn within 3-4 hours of the onset of the symptom and found normal. Diagnosis of myocardial injury is made with acute changes in cTn concentrations with at least one serial sample above the 99th percentile upper reference limit (URL), taken together with the patient's clinical presentation. Biotin has been reported to cause a negative bias, interpret results relative to patient's use of biotin. Lab Interpretation Normal (test code = 58710-2) [facility]AL [id number] 19:03:43 Test Item Value Reference Range Interpretation Comments NT-proBNP (test code 58 pg/mL See_Comment [Autom ated = 4562384647) message] The system which generated this result transmitted reference range : <=125. The reference range was not used to interpret this result as normal/abnormal . OMAIRA (test code = OMAIRA) Biotin has been reported to cause a negative bias, interpret results relative to patient's use of biotin. Lab Interpretation Normal (test code = 07040-9) [facility] [place] [place]. METABOLIC PANEL (69627)2022-05-22 18:57:05 Test Item Value Reference Range Interpretation Comments NA (test code = 137 mmol/L 135-145 8646388933) K (test code = 3.7 mmol/L 3.5-5 4470319219) CL (test code = 104 mmol/L 98-108 9618502951) CO2 TOTAL (test code = 24 mmol/L 23-31 7569423904) AGAP (test code = 2-16 2854850214) BUN (test code = 20 mg/dL 7-23 4610305903) GLUCOSE (test code = 119 mg/dL 70-110 H 4835695067) CREATININE (test code = 1.07 mg/dL 0.6-1.25 6359322354) TOTAL BILI (test code = 0.8 mg/dL 0.1-1.9 0841057492) CALCIUM (test code = 9.7 mg/dL 8.6-10.6 8903580117) T PROTEIN (test code = 7.4 g/dL 6.3-8.2 3956194465) ALBUMIN (test code = 5.1 g/dL 3.5-5 H 2165589620) ALK PHOS (test code = 58 U/L 34-122 2150299172) ALTv (test code = 27 U/L 5-50 1742-6) AST(SGOT) (test code = 31 U/L 13-40 5234340470) eGFR (test code = mL/min/1.73m2 9103970365) OMAIRA (test code = OMAIRA) Association of Glomerular Filtration Rate (GFR) and Staging of Kidney Disease* + --+ --+ ------+| GFR (mL/min/1.73 m2) ?| With Kidney Damage ?| ?Without Kidney Damage+ --------+ --------+ +| ?>90 ?| ?Stage one ?| ? Normal ?+ ---+ ---+ -------+| ?60-89 ?| ?Stage two ?| ? Decreased GFR ? + --+ --+ ------+| ?30-59 ?| ?Stage three ?| ? Stage three ? + --+ --+ ------+| ?15-29 ?| ?Stage four ? | ? Stage four ?+ ---+ ---+ -------+| ?<15 (or dialysis) ? ?| ?Stage five ? | ? Stage five ?+ ---+ ---+ -------+ *Each stage assumes the associated GFR level has been in effect for at least three months. ?Stages 1 to 5, with or without kidney disease, indicate chronic kidney disease. Notes: Determination of stages one and two (with eGFR >59mL/min/1.73 m2) requires estimation of kidney damage for at least three months as defined by structural or functional abnormalities of the kidney, manifested by either:Pathological abnormalities or Markers of kidney damage (including abnormalities in the composition of the blood or urine or abnormalities in imaging tests). Lab Interpretation Abnormal (test code = 43378-9) [facility]20[facility] 18:56:24 Test Item Value Reference Range Interpretation Comments MAGNESIUM (test code = 1048113993) 1.9 mg/dL 1.7-2.4 Lab Interpretation (test code = Normal 86651-6) [facility]2022-[facility] 18:56:04 Test Item Value Reference Range Interpretation Comments LIPASE (test code = 4269623952) 628 U/L 0-220 H Lab Interpretation (test code = Abnormal 81883-2) [facility] WITH [id number] 18:37:23 Test Item Value Reference Range Interpretation Comments WBC (test code = See_Comment [Automated 1799-2) message] The sy stem which generated this result transmitted reference range : 4.20 - 10.70 10*3/?L. The reference range was not used to interpret this result as normal/abnormal . RBC (test code = See_Comment [Automated 452-6) message] The sy stem which generated this result transmitted reference range : 4.26 - 5.52 10*6/?L. The reference range was not used to interpret this result as normal/abnormal . HGB (test code = 14.6 g/dL 12.2-16.4 718-7) HCT (test code = 42.4 % 38.4-49.3 4544-3) MCV (test code = 85.7 fL 81.7-95.6 787-2) MCH (test code = 29.5 pg 26.1-32.7 785-6) MCHC (test code = 34.4 g/dL 31.2-35 786-4) RDW-SD (test code = 39.1 fL 38.5-51.6 25928-6) RDW-CV (test code = 12.6 % 12.1-15.4 788-0) PLT (test code = See_Comment H [Automated 777-3) message] The sy stem which generated this result transmitted reference range : 150 - 328 10*3/ ?L. The reference r afshin was not used to interpret this result as normal/abnormal . MPV (test code = 9.1 fL 9.8-13 L 75916-4) NRBC/100 WBC (test See_Comment [Automat ed code = 4029574773) message] The system which generated this result transmitted reference range : 0.0 - 10.0 /100 WBCs. The refer ence range was not u sed to interpret th is result as normal/abnormal . NRBC x10^3 (test code See_Comment [Auto mated = 3917220041) message] The s ystem which generated this result transmitted reference range : 10*3/?L. The reference range was not used to interpret this result as normal/abnormal . GRAN MAT (NEUT) % 62.9 % (test code = 770-8) IMM GRAN % (test code 0.20 % = 2279636703) LYMPH % (test code = 28.3 % 736-9) MONO % (test code = 7.0 % 5905-5) EOS % (test code = 0.8 % 713-8) BASO % (test code = 0.8 % 706-2) GRAN MAT x10^3(ANC) 4.02 10*3/uL 1.99-6.95 (test code = 8967282340) IMM GRAN x10^3 (test 0-0.06 code = 7376343912) LYMPH x10^3 (test code 1.81 10*3/uL 1.09-3.23 = 731-0) MONO x10^3 (test code 0.45 10*3/uL 0.36-1.02 = 742-7) EOS x10^3 (test code = 0.05 10*3/uL 0.06-0.53 L 711-2) BASO x10^3 (test code 0.05 10*3/uL 0.01-0.09 = 704-7) Lab Interpretation Abnormal (test code = 89635-6) [facility] WITH [id number] 21:58:00 Test Item Value Reference Range Interpretation Comments WBC (test code = See_Comment [Automated 9264-2) message] The sy stem which generated this result transmitted reference range : 4.20 - 10.70 10*3/?L. The reference range was not used to interpret this result as normal/abnormal . RBC (test code = See_Comment [Automated 685-8) message] The sy stem which generated this result transmitted reference range : 4.26 - 5.52 10*6/?L. The reference range was not used to interpret this result as normal/abnormal . HGB (test code = 13.6 g/dL 12.2-16.4 718-7) HCT (test code = 39.5 % 38.4-49.3 4544-3) MCV (test code = 87.8 fL 81.7-95.6 787-2) MCH (test code = 30.2 pg 26.1-32.7 785-6) MCHC (test code = 34.4 g/dL 31.2-35 786-4) RDW-SD (test code = 41.7 fL 38.5-51.6 38236-6) RDW-CV (test code = 13.1 % 12.1-15.4 788-0) PLT (test code = See_Comment [Automated 437-3) message] The sy stem which generated this result transmitted reference range : 150 - 328 10*3/ ?L. The reference r afshin was not used to interpret this result as normal/abnormal . MPV (test code = 8.7 fL 9.8-13 L 38055-2) NRBC/100 WBC (test See_Comment [Automat ed code = 5730157040) message] The system which generated this result transmitted reference range : 0.0 - 10.0 /100 WBCs. The refer ence range was not u sed to interpret th is result as normal/abnormal . NRBC x10^3 (test code <0.01 See_Comment [Auto mated = 8238791200) message] The s ystem which generated this result transmitted reference range : 10*3/?L. The reference range was not used to interpret this result as normal/abnormal . GRAN MAT (NEUT) % 51.5 % (test code = 770-8) IMM GRAN % (test code 0.20 % = 9633853946) LYMPH % (test code = 34.7 % 736-9) MONO % (test code = 10.6 % 5905-5) EOS % (test code = 2.2 % 713-8) BASO % (test code = 0.8 % 706-2) GRAN MAT x10^3(ANC) 3.31 10*3/uL 1.99-6.95 (test code = 2249090327) IMM GRAN x10^3 (test <0.03 0-0.06 code = 4121672515) LYMPH x10^3 (test code 2.23 10*3/uL 1.09-3.23 = 731-0) MONO x10^3 (test code 0.68 10*3/uL 0.36-1.02 = 742-7) EOS x10^3 (test code = 0.14 10*3/uL 0.06-0.53 711-2) BASO x10^3 (test code 0.05 10*3/uL 0.01-0.09 = 704-7) Lab Interpretation Abnormal (test code = 75985-1) [facility]"
[2022-08-29] MEDS ORDERED: BUPIVACAINE 0.5% PF 10 ML VIAL ONE (14:58)
[2022-08-29] MEDS ORDERED: LIDOCAINE 1% MPF 30 ML VIAL ONE (14:58)
--- NOTE | 2022-08-29 15:36 | ER ---
Nurse's Notes [facility] Name: Christopher Voss Age: 52 yrs Sex: Male : 1970 Arrival Date: 08/29/2022 Time: 14:03 Bed 8 Private MD: Diagnosis: Sebaceous cyst Presentation: 08/29 14:33 Chief complaint: Patient states: abscess to right middle back since 08/23. Was seen at [address] [facility] on 08/25 and began taking Clindamycin 300mg QID. Reports no improvement. Coronavirus screen: Vaccine status: Patient reports receiving the 2nd dose of the covid vaccine. Client denies travel out of the [place] in the last 14 days. Ebola Screen: Patient negative for fever greater than or equal to 101.5 degrees Fahrenheit, and additional compatible Ebola Virus Disease symptoms Patient denies exposure to infectious person. Patient denies travel to an Ebola-affected area in the 21 days before illness onset. Initial Sepsis Screen: Does the patient meet any 2 criteria? No. Patient's initial sepsis screen is negative. Does the patient have a suspected source of infection? No. Patient's initial sepsis screen is negative. Risk Assessment: Do you want to hurt yourself or someone else? Patient reports no desire to harm self or others. Onset of symptoms was August 23, 2022. 14:33 Method Of Arrival: Ambulatory [facility] 14:33 Acuity: TOMMY 3 [facility] Triage Assessment: 14:37 General: Appears in no apparent distress. Behavior is calm, cooperative. Pain: [facility] Complains of pain in right subscapular area Pain does not radiate. Pain currently is 8 out of 10 on a pain scale. 14:37 Derm: Abscess located on right subscapular area. [facility] Historical: - Allergies: 14:37 No Known Allergies; [facility] - Home Meds: 14:37 aspirin 81 mg Oral chew [Active]; lisinopril 10 mg Oral tab 1 tab once daily [Active]; 3 metoprolol tartrate 50 mg Oral tab 1 tab 2 times per day [Active]; Plavix 75 mg Oral tab 1 tab once daily [Active]; Xanax Oral [Active]; Magnesium Oxide Oral [Active]; - PMHx: 14:37 Anxiety; Hypertension; Myocardial infarction; kb3 - PSHx: 14:37 None; kb3 - Immunization history:: Adult Immunizations up to date, Client reports receiving the 2nd dose of the Covid vaccine. - Social history:: Smoking status: Patient denies any tobacco usage or history of. Vital Signs: 14:33 BP 127 / 87; Pulse 77; Resp 20; Temp 98.6; Pulse Ox 100% ; Weight 74.84 kg; Height 5 kb3 ft. 6 in. (167.64 cm); Pain 7/10; 14:33 Body Mass Index 26.63 (74.84 kg, 167.64 cm) kb3 ED Course: 14:03 Patient arrived in ED. rg4 14:03 [facility] 14:04 Bobby Charlton MD is Attending Physician. m 14:37 Triage completed. kb3 14:37 Arm band placed on right wrist. kb3 15:00 Flakita Durand, RN is Primary Nurse. iw 15:35 Luis Vee MD is Referral Physician. [facility] Administered Medications: 15:29 Drug: Lidocaine (1 %) 20 ml {Note: by PA. Marshall} Volume: 20 ml; Route: Infiltration; iw 15:30 Drug: Marcaine (bupivacaine) (0.5 %) 10 ml {Note: by PA. Marshall} Volume: 10 ml; Route: iw Infiltration; 16:03 Drug: [place] (HYDROcodone-acetaminophen) 10 mg-325 mg 1 tabs Route: PO; iw Outcome: 15:35 Discharge ordered by . m 16:03 Patient left the ED. iw Signatures: Marshall Hummel PA PA jmm Williams, Irene, RN Jennifer Malik 4 Ana Kapoor RN RN kb3
--- NOTE | 2022-08-29 15:36 | EDPHYS ---
Physician Documentation [facility] Name: Christopher Voss Age: 52 yrs Sex: Male : 1970 Arrival Date: 08/29/2022 Time: 14:03 Bed 8 Private MD: ED Physician Bobby Charlton HPI: 08/29 15:33 This 52 yrs old Male presents to ER via Ambulatory with complaints of Abscess. [facility] 15:33 Onset: The symptoms/episode began/occurred gradually, 12 day(s) ago. Is a 52-year-old [facility] male with history of anxiety, hypertension, coronary artery disease the presents emerged part with complaints of swelling to his back worsening over the past 12 days. Patient states he is always had a little bit of swelling there but it has become more pronounced since 17 August. Patient was seen in urgent care prescribed oral antibiotics.. Historical: - Allergies: 14:37 No Known Allergies; kb3 - Home Meds: 14:37 aspirin 81 mg Oral chew [Active]; lisinopril 10 mg Oral tab 1 tab once daily [Active]; kb3 metoprolol tartrate 50 mg Oral tab 1 tab 2 times per day [Active]; Plavix 75 mg Oral tab 1 tab once daily [Active]; Xanax Oral [Active]; Magnesium Oxide Oral [Active]; - PMHx: 14:37 Anxiety; Hypertension; Myocardial infarction; kb3 - PSHx: 14:37 None; kb3 - Immunization history:: Adult Immunizations up to date, Client reports receiving the 2nd dose of the Covid vaccine. - Social history:: Smoking status: Patient denies any tobacco usage or history of. ROS: 15:33 Constitutional: Negative for fever, chills, and weight loss, Cardiovascular: Negative jmm for chest pain, palpitations, and edema, Respiratory: Negative for shortness of breath, cough, wheezing, and pleuritic chest pain. 15:33 Skin: Positive for erythema, swelling. 15:33 All other systems are negative. Exam: 15:33 Constitutional: This is a well developed, well nourished patient who is awake, alert, jmm and in no acute distress. Head/Face: atraumatic. Eyes: EOMI, no conjunctival erythema appreciated ENT: Moist Mucus Membranes Neck: Trachea midline, Supple Chest/axilla: Normal chest wall appearance and motion. Cardiovascular: Regular rate and rhythm. No edema appreciated Respiratory: Normal respirations, no respiratory distress appreciated Abdomen/GI: Non distended Back: Normal ROM Skin: General appearance color normal 15:33 Back: Swelling noted to the right upper thoracic region, induration appreciated. 15:33 Musculoskeletal/extremity: ROM: intact in all extremities. 15:33 Skin: Appearance: Color: normal in color. 15:33 Neuro: Orientation: is normal, Mentation: is normal, Memory: is normal. 15:33 Psych: Behavior/mood is pleasant, cooperative. Vital Signs: 14:33 BP 127 / 87; Pulse 77; Resp 20; Temp 98.6; Pulse Ox 100% ; Weight 74.84 kg; Height 5 kb3 ft. 6 in. (167.64 cm); Pain 7/10; 14:33 Body Mass Index 26.63 (74.84 kg, 167.64 cm) kb3 Procedures: 15:33 I \T\ D: Incision and drainage was performed for an abscess of the back Prepped with carol barrios. Anesthetized with 15 ml's 1% Lidocaine. Incised with #11 blade. Drained Packed with sterile gauze, Dressing: sterile 4x4 gauze, the patient tolerated the procedure well. MDM: 14:17 Patient medically screened. carol 15:34 Data reviewed: vital signs, nurses notes. Counseling: I had a detailed discussion with carol the patient and/or guardian regarding: the historical points, exam findings, and any diagnostic results supporting the discharge/admit diagnosis, the need for outpatient follow up, to return to the emergency department if symptoms worsen or persist or if there are any questions or concerns that arise at home. Administered Medications: 15:29 Drug: Lidocaine (1 %) 20 ml {Note: by PA. Marshall} Volume: 20 ml; Route: Infiltration; iw 15:30 Drug: Marcaine (bupivacaine) (0.5 %) 10 ml {Note: by PA. Marshall} Volume: 10 ml; Route: iw Infiltration; 16:03 Drug: Tappen (HYDROcodone-acetaminophen) 10 mg-325 mg 1 tabs Route: PO; iw Disposition: 17:08 Co-signature as Attending Physician, Bobby Charlton MD I agree with the assessment and rt plan of care. Disposition Summary: 08/29/22 15:35 Discharge Ordered Location: Home [facility] Condition: Stable [facility] Diagnosis - Sebaceous cyst [facility] Followup: [facility] - With: Luis Vee MD - When: 2 - 3 days - Reason: Recheck today's complaints, Continuance of care, Re-evaluation by your physician Discharge Instructions: - Discharge Summary Sheet [facility] - Epidermal Cyst Removal [facility] - Incision and Drainage, Care After m Forms: - Medication Reconciliation Form [facility] - Thank You Letter [facility] - Antibiotic Education [facility] - Prescription Opioid Use [facility] Prescriptions: - Ultracet 37.5-325 mg Oral Tablet - take 1 tablet by ORAL route every 6 hours - for up to 5 days; do not exceed 8 jmm tablets per day.; 20 tablet; Refills: 0, Product Selection Permitted Signatures: Marshall Hummel PA PA jmm Williams, Irene, RN RN iw Ana Kapoor RN RN kb3 Bobby Charlton MD MD rt
[2022-08-29] MEDS ORDERED: HYDROCODONE/APAP 10/325 TAB ONE (15:56)
[2022-08-29 16:30] VITALS: BP 127/87; TEMP 98.6; O2SAT 100
== END 2022-08-29 16:03 | disposition home or self-care (01) ==
LOC: ER 13:58
PROC: 0H96XZZ Drainage of Back Skin, External Approach (ICD-10-PCS; principal; 2022-08-29)
DX: L72.3 Sebaceous cyst (principal); I10 Essential (primary) hypertension; F41.9 Anxiety disorder, unspecified; Z79.01 Long term (current) use of anticoagulants; Z79.82 Long term (current) use of aspirin
CPT/HCPCS: 99282; 10060; J2001